=== PATIENT | female | born 1955 | race Caucasian/White ===

== ENCOUNTER → 2019-05-20 08:35 | Outpatient (CLI) | payer MEDICARE, SELFPAY ==
--- NOTE | ~2019-05-20 | CT_ITS ---
EXAMINATION: CT abdomen pelvis wo con DATE: 05/20/2019 09:13 INDICATION: Abdominal and low back pain, history of kidney stones TECHNIQUE: Computed tomography (CT) of the abdomen and pelvis was performed without intravenous contr ast. The dose-length product (DLP) was 271.79 mGy-cm. Automated exposure control and iterative recons truction technique were employed. COMPARISON: 06/26/2017 FINDINGS: The lung bases are clear. The heart size is normal. The gallbladder is surgically absent. T he liver, spleen, pancreas, and adrenal glands are normal. There is a 4 mm nonobstructing stone of th e right kidney upper pole. Peripelvic cysts are noted in the left kidney. There is no hydronephrosis or hydroureter. No stones are identified in the ureters or within the bladder. A moderate volume of c olonic stool is present. Calcified atherosclerosis of the aorta is noted. No pathologically enlarged abdominal or pelvic lymph nodes are identified. There is no free intraperitoneal gas or evidence of b owel obstruction. There is mild lumbar spondylosis. IMPRESSION: 1. Nonobstructing right nephrolithiasis. Reviewed, dictated and finalized at location A. TRIC BLANKET WIRER
--- NOTE | ~2019-05-20 | XR_ITS ---
EXAMINATION: XR lumbar spine min 4V DATE: 05/20/2019 09:13 INDICATION: Low back pain TECHNIQUE: Anteroposterior, lateral, and bilateral oblique views of the lumbar spine, and cone-down l ateral view of the lumbosacral junction were obtained. COMPARISON: CT from today FINDINGS: There is no fracture, dislocation, or subluxation. The vertebral body heights and alignment are normal. There is mild loss of intervertebral disc space height in the lower lumbar spine. Advanc ed facet osteoarthritis is noted at L4-5 and L5-S1. Small degenerative osteophytes project from the a nterior endplates of multiple vertebral bodies. Calcified atherosclerosis noted. There are cholecyste ctomy clips in the right upper quadrant. IMPRESSION: 1. Mild lumbar spondylosis without acute findings. Reviewed, dictated and finalized at location A. DEVELOPER
== END ==
PROVIDERS: PCP Internal Medicine; Visit Provider Internal Medicine
DX: M47.896 Other spondylosis, lumbar region (principal); N20.0 Calculus of kidney
CPT/HCPCS: 72110; 74176

== ENCOUNTER → 2019-06-29 11:10 | Outpatient (CLI) | payer MEDICARE, SELFPAY ==
--- NOTE | ~2019-06-29 | XR_ITS ---
XR abdomen/kub 1V 06/29/2019 11:25 INDICATION: Renal stones TECHNIQUE: KUB COMPARISON: 08/11/2017 FINDINGS: Bowel gas pattern is normal. There is no evidence of free air, mass, organomegaly, ascites or obstruction. There is a right renal stone overlying the 12th rib measuring approximately 3-4 mm. The bones appear intact. There are cholecystectomy clips. IMPRESSION: 1: Right nephrolithiasis. Reviewed, dictated and finalized at location A. IMPRESSION: 1: Right nephrolithiasis.
== END ==
PROVIDERS: Visit Provider Internal Medicine Nephrology
DX: N20.0 Calculus of kidney (principal)
CPT/HCPCS: 74018

== ENCOUNTER 2024-11-30 16:46 | Emergency (ER) | payer MEDICARE, SELFPAY ==
--- OUTSIDE RECORDS SUMMARY | 2024-11-30 16:48 | XMS_ITS | Clinical Summary ---
Author Organization [facility] Address [address] [place] [address] Phone Care Team Providers Care Tight Barrel Inspector Name Role Phone Dallin Vargas MD Primary Care Provider [phone] Allergies No known active allergies Medications metoprolol tartrate (LOPRESSOR) 25 MG tablet 1 bid 0 11/24/2015 Active Alpha Lipoic Acid 200 MG capsule 300mg daily 0 11/24/2015 Active pantoprazole (PROTONIX) 40 MG EC tablet 1 daily 0 11/24/2015 Active amLODIPine (NORVASC) 2.5 MG tablet 1 daily 0 11/24/2015 Active SITagliptin-metF ORMIN HCl ER (JANUMET XR) 50-1000 MG tablet sustained-releas e 24 hour 1 dailiy 0 11/24/2015 Active atorvastatin (LIPITOR) 10 MG tablet 1 daily 0 11/24/2015 Active fluticasone (FLONASE ALLERGY RELIEF) 50 MCG/ACT nasal spray 1 daily 0 11/24/2015 Active B-12, Methylcobalamin, [address] 1,000 mcg under the tongue. Active JANUVIA 100 MG tablet 1 02/02/2019 Active diclofenac (VOLTAREN) 75 MG EC tablet TK 1 T PO BID 06/15/2019 Active Active Problems Problem Noted Date Diagnosed Date Vitamin B12 deficiency 07/23/2018 Mild cognitive disorder 02/12/2018 Chronic kidney disease, stage 3 (moderate) 09/30 Calculus of kidney 09/30/2017 Type 2 diabetes mellitus without complication Essential (primary) hypertension 11/26/2015 Baca's esophagus without dysplasia 11/26/2015 Hyperlipidemia 11/26/2015 Immunizations Immunization Administration Dates Next Due Influenza, Quadrivalent 02/02/2018 Influenza,Intradermal, Quadrivalent, Preservativ 02/02/2018 Family History Medical History Relation Comments Coronary arteriosclerosis Father Heart disease Father Coronary arteriosclerosis Sibling Kidney disease Neg Hx Kidney stone Neg Hx Relation Status Comments Father Sibling Social History Tobacco Use Types Packs/Day Years Used Date Smoking Tobacco: Never Smokeless Tobacco: Never Alcohol Use Standard Drinks/Week Comments Yes 0 (1 standard drink = 0.6 oz pur e alcohol) rare Comments Unknown Sex and Gender Information Value Date Recorded Sex Assigned at Not on file Legal Sex Female 9:25 AM MST Gender Identity Not on file Sexual Orientation Not on file Last Filed Vital Signs Vital Sign Reading Time Taken Comments Blood Pressure 142/88 02/23/2019 11:37 AM POWERHOUSE ELECTRICIAN APPRENTICE Pulse 72 02/23/2019 11:37 AM POWERHOUSE ELECTRICIAN APPRENTICE Temperature 36.6 C (97.8 F) 02/23/2019 11:37 AM POWERHOUSE ELECTRICIAN APPRENTICE Respiratory Rate - - Oxygen Saturation - - Inhaled Oxygen Concentration - - Weight 62.6 kg (138 lb) 02/23/2019 11:37 AM POWERHOUSE ELECTRICIAN APPRENTICE Height 147.3 cm (4' 10) 02/23/2019 11:37 AM POWERHOUSE ELECTRICIAN APPRENTICE Body Mass Index 28.84 02/23/2019 11:37 AM POWERHOUSE ELECTRICIAN APPRENTICE Plan of Treatment Health Maintenance Due Date Last Done Comments Pneumococcal PPSV23/PCV13 65 + Years / Low and Medium Risk (1 of 2 - PCV) 02/08/2004 Influenza Vaccine (#1) 2024 02/02/2018 Insurance [facility] MEDICARE ADVANTAGE Care Teams Tight Barrel Inspector Relationship Specialty Start Date End Date Dallin Vargas MD [address] , [address] [place] [address] PCP - General Internal Medicine 08/05/18
--- OUTSIDE RECORDS SUMMARY | 2024-11-30 16:49 | XMS_ITS | Clinical Summary ---
Author Organization [facility] Address [address] [place] [address] Care Team Providers Care Keycase Assembler Name Role Phone Honorio Iqbal DO Primary Care Provider [phone] Source Comments [facility],non-owned Affiliates and Associated Physician Practices is amultiple site organization consisting of ambulatory clinics and hospital sitesin [place], [place], [place] and [place]. This disclosure is being madepursuant to the Care Everywhere program and may not contain all information available regarding this patient. Last updated 18.[facility] Allergies No known active allergies Medications * This document contains information received from the source organization and may not represent a complete record from that organization. * Be aware that medications may not be up to date on this document. Alwaysverify current medications with the patient. atorvastatin (LIPITOR) 10 MG tablet Take 10 mg by mouth once daily 12/08/2017 Active ONETOUCH ULTRA TEST STRIPS test strip Use 1 strip once 11/24/2017 Active lisinopril (PRINIVIL; ZESTRIL) 10 MG tablet Take 10 mg by mouth once daily 01/02/2018 Active metoprolol tartrate (LOPRESSOR) 25 MG tablet Take 25 mg by mouth once daily 02/11/2018 Active pantoprazole EC (PROTONIX) 40 MG tablet Take 40 mg by mouth once daily 02/01/2018 Active JANUMET 50-1000 MG tablet Take 1 tablet by mouth 2 times daily with morning and evening meal 12/23/2017 Active B-12, Methylcobalamin , 1000 MCG Dissolve 1,000 mcg under the tongue once daily Active Active Problems Problem Noted Date Diagnosed Date Baca's esophagus with esophagitis 07/23/2018 Gastroesophageal reflux disease 07/23/2018 Vitamin B12 deficiency 07/23/2018 Mild cognitive impairment 02/12/2018 Hypertensive disorder 02/12/2018 Type 2 diabetes mellitus without complication Hyperlipidemia 02/12/2018 Calculus of kidney 09/30/2017 Chronic kidney disease, stage 3 (moderate) 09/30 Baca's esophagus without dysplasia 11/26/2015 Immunizations Immunization Administration Dates Next Due iNFLUENZA VACCINE, RECOM-BURNS, QUADR. (FLUBLOCK QUADRIVALENT; 18Y+) (RIV4) 02/02/2018 Social History Tobacco Use Types Packs/Day Years Used Date Smoking Tobacco: Never Smokeless Tobacco: Never Comments No Sex and Gender Information Value Date Recorded Sex Assigned at Not on file Legal Sex Female 10:07 AM CDT Gender Identity Not on file Sexual Orientation Not on file Last Filed Vital Signs Vital Sign Reading Time Taken Comments Blood Pressure 140/80 07/23/2018 9:10 AM CDT Pulse 66 07/23/2018 9:09 AM CDT Temperature 36.7 C (98 F) 07/23/2018 9:09 AM CDT Respiratory Rate 14 07/23/2018 9:09 AM CDT Oxygen Saturation 98% 07/23/2018 9:09 AM CDT Inhaled Oxygen Concentration - - Weight 60.9 kg (134 lb 3.2 oz) 07/23/2018 9:09 A M CDT Height 151.1 cm (4' 11.5) 07/23/2018 9:09 AM CD T Body Mass Index 26.65 07/23/2018 9:09 AM CDT Plan of Treatment Health Maintenance Due Date Last Done Comments BONE DENSITY TESTING 1954 COLOGUARD (AGES 45-75) - COL ON CA SCREENING 1954 COLON MONITORING 1954 COLONOSCOPY - COLON CA SCREENING 1954 CT COLONOGRAPHY - COLON CA SCREENING 1954 Colorectal Cancer Screening 1954 FIT - COLON CA SCREENING 1954 FLEX SIG - COLON CA SCREENING 1954 MAMMOGRAM 1954 HEPATITIS C SCREENING 02/03/1972 DTAP/TDAP/TD VACCINES (1 - Tdap) 1973 PNEUMOCOCCAL VACCINE 50+ (1 of 1 - PCV) 02/08/2004 ZOSTER VACCINE (1 of 2) 02/08/2004 DIABETES-FOOT EXAM WITH MONOFILAMENT 02/12/2018 DIABETES-HGB A1C 08/22/2018 02/22/2018 DIABETES-SERUM CREATININE 02/22/2019 02/22/2018 COVID-19 VACCINE (1 - 2023-2 5 season) 2023 DEPRESSION SCREENING 04/20/2024 DIABETES - URINE PROTEIN SCREENING 04/20/2024 INFLUENZA VACCINE (#1) 2024 02/02/2018 Respiratory Syncytial Virus (RSV) Vaccine Pt: or over 60 yrs (1 - 1-dose 75+ series) 2029 HEPATITIS B VACCINE Aged Out No longe r eligible based on patient's age to complete this topic HIB VACCINE Aged Out No longer eligi ble based on patient's age to complete this topic HPV VACCINE Aged Out No longer eligi ble based on patient's age to complete this topic MENINGOCOCCAL (Group B) VACC INE SHARED DECISION-MAKING Aged Out No longer eligibl e based on patient's age to complete this topic MENINGOCOCCAL GROUPS A/C/Y/W VACCINE Aged Out No longer eligible b ased on patient's age to complete this topic Procedures Procedure Name Priority Date/Time Associated Diagnosis Comments COMPREHENSIVE METABOLIC PANEL 02/22/2018 8:35 AM WORKPLACE TRAINER AND ASSESSOR HEMOGLOBIN A1C Routine 02/22/2018 8:35 AM WORKPLACE TRAINER AND ASSESSOR Type 2 diabetes mellitus without complication, without long-term current use of insulin from Last 3 Months or Most Recently Relevant to Health Maintenance Results * (ABNORMAL) HEMOGLOBIN A1C (02/22/2018 8:35 AM WORKPLACE TRAINER AND ASSESSOR) Hemoglobin A1c 6.2(H) 4.8 - 5.6 % [facility] INSURANCE BILL Comment: . Prediabetes: 5.7 - 6.4 Diabetes: >6.4 Glycemic control for adults with diabetes: <7.0 FASTING Blood BLOOD SPECIMEN / Unknown 02/22/2018 8:35 AM WORKPLACE TRAINER AND ASSESSOR 02/22/2018 Narrative Resulting Agency Comment [facility] [address] [facility] [phone] Gena Ramirez MD LAB - CHEMISTRY ORDERABLES F inal Result [facility] INSURANCE BILL [address] [place] [address] * (ABNORMAL) COMPREHENSIVE METABOLIC PANEL (02/22/2018 8:35 AM WORKPLACE TRAINER AND ASSESSOR) Glucose 123(H) 65 - 99 mg/dL [facility] INSURANCE BILL BUN 24 8 - 27 mg/dL [facility] INSURANCE BILL Creatinine 1.08(H) 0.57 - 1.00 mg/dL [facility] INSURANCE BILL eGFR by MDRD 54(L) >59 mL/min/1.7 3 [facility] INSURANCE BILL eGFR by MDRD 63 >59 mL/min/1.7 3 [facility] INSURANCE BILL BUN/Creatinine Ratio 22 12 - 28 [facility] INSURANCE BILL Sodium 144 134 - 144 mmol/L [facility] INSURANCE BILL Potassium 4.6 3.5 - 5.2 mmol/L [facility] INSURANCE BILL Chloride 106 96 - 106 mmol/L [facility] INSURANCE BILL CO2 19(L) 20 - 29 mmol/L [facility] INSURANCE BILL Calcium 9.8 8.7 - 10.3 mg/dL [facility] INSURANCE BILL Protein Total 6.7 6.0 - 8.5 g/dL [facility] INSURANCE BILL Albumin 4.4 3.6 - 4.8 g/dL [facility] INSURANCE BILL Globulin Total 2.3 1.5 - 4.5 g/dL [facility] INSURANCE BILL Albumin/Globulin Ratio 1.9 1.2 - 2.2 [facility] INSURANCE BILL Bilirubin Total 0.6 0.0 - 1.2 mg/dL [facility] INSURANCE BILL Alkaline Phosphatase 78 39 - 117 IU/L [facility] INSURANCE BILL AST 20 0 - 40 IU/L [facility] INSURANCE BILL ALT 16 0 - 32 IU/L [facility] INSURANCE BILL Comment:FASTING 02/22/2018 8:35 AM WORKPLACE TRAINER AND ASSESSOR 02/22/2018 Narrative Resulting Agency Comment [facility] [id number] [facility] [id number] Gena Ramirez MD LAB - CHEMISTRY ORDERABLES F inal Result [facility] INSURANCE BILL [address] [place] [address] from Last 3 Months or Most Recently Relevant to Health Maintenance Insurance [facility] Care Teams Keycase Assembler Relationship Specialty Start Date End Date Honorio Iqbal DO [address] [place], [place] [phone] PCP - General 02/12/18
[2024-11-30 16:50] VITALS: BP 155/85; PULSE 87; RESP 16; TEMP 36.4; O2SAT 98
--- OUTSIDE RECORDS SUMMARY | 2024-11-30 19:12 | XMS_ITS | Clinical Summary ---
Author Organization [facility] Address [address] [place] [address] Care Team Providers Care Occupational Analyst Name Role Phone Honorio Iqbal DO Primary Care Provider [phone] Source Comments [facility],non-owned Affiliates and Associated Physician Practices is amultiple site organization consisting of ambulatory clinics and hospital sitesin [place], [place], [place] and [place]. This disclosure is being madepursuant to the Care Everywhere program and may not contain all information available regarding this patient. Last updated 18.[facility] Allergies No known active allergies Medications * [...] Comments COMPREHENSIVE METABOLIC PANEL 02/22/2018 8:35 AM OSTOMY NURSE HEMOGLOBIN A1C Routine 02/22/2018 8:35 AM OSTOMY NURSE Type 2 diabetes mellitus without complication, without long-term current use of insulin from Last 3 Months or Most Recently Relevant to Health Maintenance Results * (ABNORMAL) HEMOGLOBIN A1C (02/22/2018 8:35 AM OSTOMY NURSE) Hemoglobin A1c 6.2(H) 4.8 - 5.6 % [facility] INSURANCE BILL Comment: . Prediabetes: 5.7 - 6.4 Diabetes: >6.4 Glycemic control for adults with diabetes: <7.0 FASTING Blood BLOOD SPECIMEN / Unknown 02/22/2018 8:35 AM OSTOMY NURSE 02/22/2018 Narrative Resulting Agency Comment [facility] [address] [facility] [id number] Gena Ramirez MD LAB - CHEMISTRY ORDERABLES F inal Result [facility] INSURANCE BILL [address] [place] [address] * (ABNORMAL) COMPREHENSIVE METABOLIC PANEL (02/22/2018 8:35 AM OSTOMY NURSE) Glucose 123(H) 65 - 99 mg/dL [facility] [...] [facility] INSURANCE BILL Comment:FASTING 02/22/2018 8:35 AM OSTOMY NURSE 02/22/2018 Narrative Resulting Agency Comment [facility] [id number] [facility] [id number] Gena Ramirez MD LAB - CHEMISTRY ORDERABLES F inal Result [facility] INSURANCE BILL [address] [place] [address] from Last 3 Months or Most Recently Relevant to Health Maintenance Insurance [facility] Care Teams Occupational Analyst Relationship Specialty Start Date End Date Honorio Iqbal DO [address] [place], [place] [phone] PCP - General 02/12/18
--- OUTSIDE RECORDS SUMMARY | 2024-11-30 19:12 | XMS_ITS | Clinical Summary ---
Author Organization [facility] Address [address] [place] [address] Phone Care Team Providers Care Literary Writer Name Role Phone Dallin Vargas MD Primary Care Provider [phone] Allergies No known active allergies Medications metoprolol [...] Comments Blood Pressure 142/88 02/23/2019 11:37 AM CULINARY ASSISTANT Pulse 72 02/23/2019 11:37 AM CULINARY ASSISTANT Temperature 36.6 C (97.8 F) 02/23/2019 11:37 AM CULINARY ASSISTANT Respiratory Rate - - Oxygen Saturation - - Inhaled Oxygen Concentration - - Weight 62.6 kg (138 lb) 02/23/2019 11:37 AM CULINARY ASSISTANT Height 147.3 cm (4' 10) 02/23/2019 11:37 AM CULINARY ASSISTANT Body Mass Index 28.84 02/23/2019 11:37 AM CULINARY ASSISTANT Plan of Treatment Health Maintenance Due Date Last Done Comments Pneumococcal PPSV23/PCV13 65 + Years / Low and Medium Risk (1 of 2 - PCV) 02/08/2004 Influenza Vaccine (#1) 2024 02/02/2018 Insurance [facility] [address] Care Teams Literary Writer Relationship Specialty Start Date End Date Dallin Vargas MD [address] , [address] [place] [address] PCP - General Internal Medicine 08/05/18
== END 2024-11-30 20:28 | disposition left against medical advice (07) ==
PROVIDERS: PCP Internal Medicine
DX: H92.02 Otalgia, left ear (principal)
CPT/HCPCS: 99199

== ENCOUNTER 2025-01-18 08:50 | Outpatient (CLI) | payer MEDICARE, SELFPAY ==
--- OUTSIDE RECORDS SUMMARY | 2025-01-18 09:10 | XMS_ITS | Clinical Summary ---
Author Organization [facility] Address [address] [place] [address] Phone Care Team Providers Care Bit Tapper Name Role Phone Dallin Vargas MD Primary Care Provider [phone] Allergies No known active allergies Medications metoprolol [...] Comments Blood Pressure 142/88 02/23/2019 11:37 AM DIAGRAMMER AND SEAMER Pulse 72 02/23/2019 11:37 AM DIAGRAMMER AND SEAMER Temperature 36.6 C (97.8 F) 02/23/2019 11:37 AM DIAGRAMMER AND SEAMER Respiratory Rate - - Oxygen Saturation - - Inhaled Oxygen Concentration - - Weight 62.6 kg (138 lb) 02/23/2019 11:37 AM DIAGRAMMER AND SEAMER Height 147.3 cm (4' 10) 02/23/2019 11:37 AM DIAGRAMMER AND SEAMER Body Mass Index 28.84 02/23/2019 11:37 AM DIAGRAMMER AND SEAMER Plan of Treatment Health Maintenance Due Date Last Done Comments Pneumococcal PPSV23/PCV13 65 + Years / Low and Medium Risk (1 of 2 - PCV) 02/08/2004 Influenza Vaccine (#1) 2024 02/02/2018 Insurance [facility] MEDICARE ADVANTAGE Care Teams Bit Tapper Relationship Specialty Start Date End Date Dallin Vargas MD [address] , [address] [place] [address] PCP - General Internal Medicine 08/05/18
--- OUTSIDE RECORDS SUMMARY | 2025-01-18 09:10 | XMS_ITS | Clinical Summary ---
Author Organization [facility] Address [address] [place] [address] Care Team Providers Care Assistive Technology Specialist Name Role Phone Honorio Iqbal DO Primary Care Provider [phone] Source Comments [facility],non-owned Affiliates and Associated Physician Practices is amultiple site organization consisting of ambulatory clinics and hospital sitesin [place], [place], [place] and [place]. This disclosure is being madepursuant to the Care Everywhere program and may not contain all information available regarding this patient. Last updated 18.[facility] Allergies No known active allergies Medications * [...] 02/12/2018 Type 2 diabetes mellitus without complication Overview (01/18/2025): IMO 01/18/2025 Hyperlipidemia 02/12/2018 Calculus of kidney 09/30/2017 Chronic [...] A1C 08/22/2018 02/22/2018 DIABETES-SERUM CREATININE 02/22/2019 02/22/2018 DEPRESSION SCREENING 04/20/2024 DIABETES - URINE PROTEIN SCREENING 04/20/2024 COVID-19 VACCINE (1 - 2023-2 5 season) 2024 INFLUENZA VACCINE (#1) 2024 02/02/2018 Respiratory Syncytial [...] Comments COMPREHENSIVE METABOLIC PANEL 02/22/2018 8:35 AM BIOSTATISTICIAN HEMOGLOBIN A1C Routine 02/22/2018 8:35 AM BIOSTATISTICIAN Type 2 diabetes mellitus without complication, without long-term current use of insulin from Last 3 Months or Most Recently Relevant to Health Maintenance Results * (ABNORMAL) HEMOGLOBIN A1C (02/22/2018 8:35 AM BIOSTATISTICIAN) Hemoglobin A1c 6.2(H) 4.8 - 5.6 % [facility] INSURANCE BILL Comment: . Prediabetes: 5.7 - 6.4 Diabetes: >6.4 Glycemic control for adults with diabetes: <7.0 FASTING Blood BLOOD SPECIMEN / Unknown 02/22/2018 8:35 AM BIOSTATISTICIAN 02/22/2018 Narrative Resulting Agency Comment [facility] [address] [facility] [phone] [place] Gena Ramirez MD LAB - CHEMISTRY ORDERABLES F inal Result [facility] INSURANCE BILL [address] [place] [address] * (ABNORMAL) COMPREHENSIVE METABOLIC PANEL (02/22/2018 8:35 AM BIOSTATISTICIAN) Glucose 123(H) 65 - 99 mg/dL [facility] [...] [facility] INSURANCE BILL Comment:FASTING 02/22/2018 8:35 AM BIOSTATISTICIAN 02/22/2018 Narrative Resulting Agency Comment [facility] [address] [facility] [phone] [place] Gena Ramirez MD LAB - CHEMISTRY ORDERABLES F inal Result [facility] INSURANCE BILL [address] [place] [address] from Last 3 Months or Most Recently Relevant to Health Maintenance Insurance [facility] Care Teams Assistive Technology Specialist Relationship Specialty Start Date End Date Honorio Iqbal DO [address] [place] [phone] PCP - General 02/12/18
[2025-01-18 13:01] LABS: Hematocrit 49.2 % (37.0-47.0); Hemoglobin 16.0 g/dL (12.0-15.0); Immature Granulocyte Percent A 0.2 % (0-0.5); Lymphocytes Absolute Auto 2.03 K/mm3 (0.9-3.2); Mean Corpuscular HGB Conc 32.5 g/dl (32-36); Mean Corpuscular Hemoglobin 28.9 pg (26-34); Mean Corpuscular Volume 89.0 fl (80-100); Nucleated Red Blood Cells Absolute Auto 0.000 K/mm3 (0.0-0.012); Nucleated Red Blood Cells Perc 0.0 % (0.0-0.2); Platelet Count Result 251 k/mm3 (150-375); Red Blood Count 5.53 M/mm3 (4.2-5.4); White Blood Count 8.8 K/mm3 (4.5-10.0)
[2025-01-18 13:09] LABS: Alanine Aminotransferase 28 U/L (6-35); Albumin Level 4.0 g/dL (3.5-5.1); Alkaline Phosphatase 138 U/L (38-126); Anion Gap 13 mmol/L (4-12); Aspartate Amino Transferase 39 U/L (14-36); Bilirubin,Total 0.8 mg/dL (0.2-1.3); Blood Urea Nitrogen 21 mg/dL (7-17); Calcium 9.6 mg/dL (8.4-10.2); Carbon Dioxide 22 mmol/L (22-30); Chloride 97 mmol/L (98-107); Estimated Glomerular Filt Rate 44; Glucose 455 mg/dL (65-110); Potassium 4.3 mmol/L (3.4-5.0); Sodium 132 mmol/L (137-145); Total Protein 7.0 g/dL (6.3-8.2)
[2025-01-18 13:28] LABS: MALB Creatinine Ratio 21.2 mg/g (0-30)
[2025-01-18 13:39] LABS: Free T3 3.46 pg/mL (2.45-5.93)
[2025-01-18 13:46] LABS: Thyroid Stimulating Hormone 1.150 uIU/mL (0.465-4.680)
[2025-01-18 14:22] LABS: Vitamin B12 654.0 pg/mL (239-931)
[2025-01-18 16:03] LABS: Hemoglobin A1C > 14.0 % (<5.7)
== END 2025-01-18 08:51 | disposition home or self-care (01) ==
LOC: ANHGOSHLAB 08:51
PROVIDERS: PCP Internal Medicine; Visit Provider Nurse Practitioner
DX: E11.22 Type 2 diabetes mellitus with diabetic chronic kidney disease (principal); F03.90 Unspecified dementia, unspecified severity, without behavioral disturbance, psychotic disturbance, mood disturbance, and anxiety
CPT/HCPCS: 36415; 80053; 82043; 82607; 82746; 83036; 84443; 84481; 85025; 85652